=== PATIENT | female | born 1980 | race Caucasian/White ===

== ENCOUNTER 2020-10-29 05:45 | Day surgery (SDC) | payer OTHER ==
[~2020-10-29 05:45] MED LIST: PRENATAL + DHA1 EAC1; PRENATAL + DHA1 EAC1 PO; PROBIOTIC1 EAC1 PO
== END 2020-10-29 14:15 | disposition home or self-care (01) ==
LOC: CIR.AMB 05:45
PROVIDERS: ATTEND Surgery
DX: D24.1 Benign neoplasm of right breast (principal); N64.82 Hypoplasia of breast; Z20.822 Contact with and (suspected) exposure to COVID-19